=== PATIENT | female | born 1945 | race Caucasian/White ===

== ENCOUNTER → 2018-06-07 | Day surgery (SDC) | payer MEDICARE ==
[2018-05-31 15:51] LABS: BASOPHILS % 0.6 % (0.0-1.0); EOSINOPHILS # (AUTO) 0.1 (0.0-0.4); EOSINOPHILS % 1.3 % (0.0-6.0); HEMOGLOBIN 12.3 g/dL (12.0-16.0); LYMPHOCYTES # (AUTO) 1.8 (1.0-3.2); LYMPHOCYTES % 26.5 % (18.0-39.1); MEAN CORPUSCULAR HEMOGLOBIN 29.4 pg (28-32); MEAN CORPUSCULAR HGB CONC 33.2 g/dL (31-35); MEAN CORPUSCULAR VOLUME 88.3 fL (81-99); MONOCYTES # (AUTO) 0.6 (0.2-0.8); MONOCYTES % 9.1 % (4.4-11.3); NEUTROPHILS # (AUTO) 4.3 (2.1-6.9); NEUTROPHILS % 62.2 % (38.7-80.0); PLATELET COUNT 237 x10e3/uL (140-360); RED BLOOD COUNT 4.19 x10e6/uL (3.6-5.1); RED CELL DISTRIBUTION WIDTH 13.1 % (11.7-14.4)
--- NOTE | 2018-05-31 15:59 | Diagnostic Imaging Report ---
EXAMINATION: CHEST 2 VIEWS INDICATION: PREOP COMPARISON: None FINDINGS: TUBES and LINES: None. LUNGS: Lungs are well inflated. Lungs are clear. There is no evidence of pneumonia or pulmonary edema. PLEURA: No pleural effusion or pneumothorax. Mild biapical pleural scarring. HEART AND MEDIASTINUM: The cardiomediastinal silhouette is unremarkable. Mild calcification of the aortic arch. BONES AND SOFT TISSUES: No acute osseous lesion. Spondylosis of the thoracic spine. UPPER ABDOMEN: No free air under the diaphragm. IMPRESSION: No acute thoracic abnormality. Signed by: Dr. Mega Chapman M.D. on 05/31/2018 3:56 PM
[2018-05-31 16:05] LABS: ANION GAP 14.7 mmol/L (8-16); CALCIUM 9.6 mg/dL (8.4-10.2); CREATININE, SERUM 1.06 mg/dL (0.57-1.11); POTASSIUM 3.7 mmol/L (3.5-5.1)
[~2018-06-07] MED LIST: ACETAMINOPHEN/CODEINE 300MG - 30MG TAB ONE; ALLOPURINOL100 MG PO; ASPIR 8181 MG PO; Aspirin PO; BUPIVACAINE 0.25% 30ML SDV INJ ONE; CALCIUM600 MG PO; CEFAZOLIN SOD 1 GM/NS 50ML 50 ML IV ONE; CIPROFLOXACIN500 M1 PO; DETROL LA4 MG PO; FENTANYL CITRATE/PF 100MCG/2 ML INJ ONE; FISH OIL500 M1 PO; HYDROCHLOROTHIA25 MG PO; LABETALOL HCL 5 MG/ML 20ML VIAL ONE; LIDOCAINE HCL 2% LOCAL INJ 5 ML SDV VIAL INJ ONE; MACROBID 100 M100 MG PO; MELOXICAM7.5 MG PO; METFORMIN HCL500 MG PO; METOCLOPRAMIDE HCL 10 MG/2ML VIAL ONE; METOPROLOL SUCC25 MG PO; MONTELUKAST SOD10 MG PO; MULTIVITAMINS1 EAC8 PO; NEURONTIN300 MG PO; NORCO 7.5-3251 EACH PO; OMEPRAZOLE40 MG PO; ONDANSETRON HCL INJ 2MG/ML 2ML 2 MG/ML VIAL ONE; OSTEO BI-FLEX1 EAC1 PO; PROPOFOL IV EMULSION 10 MG/ML 20 ML VIAL ONE; SEVOFLURANE INHAL SOLN 250 ML PEN BTL ONE; SUCCINYLCHOLINE 200 MG/10 ML SYR ONE; SYNTHROID25 MCG PO; VASOTEC20 MG PO; ZETIA10 MG PO
--- OUTSIDE RECORDS SUMMARY | 2018-06-07 09:18 | XMS REPORT ---
Author Author [facility] Organization [facility] Address Unknown Phone Unavailable Care Team Providers Care First Line Production Supervisor Name Role Phone ALEXANDR AG Unavailable Unavailable Payers Payer Name Policy Type Policy Number Effective Date Expiration Date Problems This patient has no known problems. Allergies, Adverse Reactions, Alerts Allergy Name Allergy Type Status Severity Reaction(s) Onset Date Inactive Date Treating Clinician Comments Sulfa (Sulfonamide Antibiotics) DA Active U 2014-07-02 00:00:00 hydrocodone DA Active U 2014-07-02 00:00:00 acetaminophen DA Active U 2014-07-02 00:00:00 Medications This patient has no known medications. Results Test Description Test Time Test Comments Text Results Atomic Results Result Comments CHEST 2 VIEWS 2018-05-31 15:55:00 [place] [address] Patient Name: BETTIE PANG MR #: [id number] : 1945 Age/Sex: 73/F Req #: [id number] Adm Physician: Ordered by: ALEXANDR AG MD Report #: [id number] Location: OR Room/Bed: Procedure: [id number] DX/CHEST 2 VIEWS Exam Date: Exam Time: REPORT STATUS: Signed EXAMINATION: CHEST 2 VIEWS INDICATION: PREOP COMPARISON: None FINDINGS: TUBES and LINES: None. LUNGS: Lungs are well inflated. Lungs are clear. There is no evidence of pneumonia or pulmonary edema. PLEURA: No pleural effusion or pneumothorax. Mild biapical pleural scarring. HEART AND MEDIASTINUM: The cardiomediastinal silhouette is unremarkable. Mild calcification of the aortic arch. BONES AND SOFT TISSUES: No acute osseous lesion. Spondylosis of the thoracic spine. UPPER ABDOMEN: No free air under the diaphragm. IMPRESSION: No acute thoracic abnormality. Signed by: Dr. Mega Chapman M.D. on 05/31/2018 3:56 PM Dictated By: ATIF CHAPMAN MD, MD [id number] Transcribed By: TERESA on 05/31/18 [id number] COPY TO: ALEXANDR AG MD
--- OUTSIDE RECORDS SUMMARY | 2018-06-07 09:18 | XMS REPORT | Clinical Summary ---
Author Author [facility] Organization [facility] Address Unknown Phone Unavailable Care Team Providers Care Handbag Finisher Name Role Phone Jerzy Valdez MD PCP Allergies Comments Active Allergy Reactions Severity Noted Date Rash Sulfa (Sulfonamide 12/10/2016 Antibiotics) Medications End Date Status Medication Sig Dispensed Refills Start Date Active aspirin (ECOTRIN) 81 MG Take 81 mg by 0 enteric coated tablet mouth daily. Active metFORMIN (GLUCOPHAGE) Take 1,000 mg 0 1,000 mg tablet by mouth 2 (two) times a day with meals. Active levothyroxine (SYNTHROID, Take 25 mcg 0 LEVOXYL) 25 mcg tablet by mouth every morning. Active metoprolol succinate XL Take 25 mg by 0 (TOPROL-XL) 25 mg 24 hr mouth daily. tablet Active enalapril (VASOTEC) 20 MG Take 20 mg by 0 tablet mouth daily. Active hydroCHLOROthiazide Take 25 mg by 0 (HYDRODIURIL) 25 MG mouth daily. tablet Active allopurinol (ZYLOPRIM) Take 100 mg 0 100 MG tablet by mouth daily. Active omeprazole (PriLOSEC) 40 Take 40 mg by 0 MG capsule mouth daily. Active ezetimibe (ZETIA) 10 mg Take 10 mg by 0 tablet mouth daily. Active montelukast (SINGULAIR) Take 10 mg by 0 10 mg tablet mouth nightly. Active gabapentin (NEURONTIN) Take 300 mg 0 300 mg capsule by mouth 2 (two) times a day. 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/08/2017 Internal nasal lesion 12/10/2016 Encounters Care Team Description Date Type Specialty Jignesh Cruz MD Squamous cell skin cancer, nasal tip (Primary Dx); Internal nasal lesion 12/23/2017 Office Visit Otolaryngology Jignesh Cruz MD Internal nasal lesion (Primary Dx) 09/21/2017 Office Visit Otolaryngology Jignesh Cruz MD Internal nasal lesion (Primary Dx) 08/03/2017 Office Visit Otolaryngology Jignesh Cruz MD Squamous cell skin cancer, nasal tip (Primary Dx) 07/01/2017 Office Visit Otolaryngology after 06/06/2017 Family History Medical History Relation Name Comments Cancer Mother uterine Relation Name Status Comments Father Mother Social History Date Tobacco Use Types Packs/Day Years Used Quit: 03/08/2017 Former Smoker Cigarettes 1.5 50 Smokeless Tobacco: Never Used Alcohol Use Drinks/Week oz/Week Comments No Sex Assigned at Date Recorded Not on file Industry Job Start Date Occupation Not on file Not on file Not on file Travel End Travel History Travel Start No recent travel history available. Last Filed Vital Signs Time Taken Vital Sign Reading 12/23/2017 9:37 AM CDT Blood Pressure 105/69 12/23/2017 9:37 AM CDT Pulse 84 07/01/2017 9:08 AM CDT Temperature 36.6 C (97.9 F) - Respiratory Rate - - Oxygen Saturation - - Inhaled Oxygen - Concentration 12/23/2017 9:37 AM CDT Weight 96.2 kg (212 lb) 12/23/2017 9:37 AM CDT Height 160 cm (5' 3") 12/23/2017 9:37 AM CDT Body Mass Index 37.55 Plan of Treatment Care Team Description Date [place] [address] [facility] [address] [place] [address] [phone] 06/22/2018 Office Visit Otolaryngology Health Maintenance Due Date Last Done Comments BREAST CANCER SCREENING 1996 COLON CANCER SCREENING 1996 SHINGLES VACCINES (1 of 1996 2) PNEUMOCOCCAL 2011 POLYSACCHARIDE VACCINE AGE 65 AND OVER PNEUMOCOCCAL-13 2011 INFLUENZA VACCINE 11/17/2017 Results Not on fileafter 06/06/2017 Insurance Payer Benefit Subscriber ID Type Phone Address Plan / Group [employer] TEX[employer] xxxxxxxxx O [facility] Advance Directives Patient has advance care planning documents on file. For more information, madi landa contact: Hi Belcher [address] [place] [address]
[2018-06-07 12:15] VITALS: BP 160/88
--- NOTE | 2018-06-07 13:46 | Operative Report ---
DATE OF PROCEDURE: 06/07/2018 DOOR GLASS INSTALLER: Eddie Hensley PA-C PREOPERATIVE DIAGNOSES: Bilateral third trigger fingers and right trigger thumb. POSTOPERATIVE DIAGNOSES: Bilateral third trigger fingers and right trigger thumb. PROCEDURE: Release of bilateral third trigger fingers and right trigger thumb. INDICATIONS: The patient is a 73-year-old lady, who has clinic exam and symptoms consistent with bilateral third trigger fingers and right trigger thumb. She would like to have these surgically released. She had previous injections, which only provided temporary relief. The risks and benefits were explained. She states she understands and wishes to proceed. DESCRIPTION OF PROCEDURE: The patient was brought to the operating room and placed under general anesthetic. Both upper extremities were prepped and draped in a sterile manner. A preoperative time-out was performed. Initial attention was directed towards the right hand. The extremity was exsanguinated and the proximal tourniquet was inflated to 250 mmHg. A transverse incision was made in line with the right third finger over the distal palmar crease. The A1 ronald was carefully dissected out and released with a 15-blade surgical knife. The tendon was retracted from the wound and noted to have no further stenosing tenosynovitis. The wound was closed with 2 interrupted nylon stitches. The same procedure was then performed on the right thumb and the left third finger. There was some notable fraying of the right third flexor tendon. All of the incisions were closed with interrupted nylon stitches. 0.5% Marcaine without epinephrine was injected around each incision. Sterile bandages were applied. She was extubated and transported to the recovery room in stable condition. There was no blood loss, and all needle and sponge counts were correct. Chance Cardona MD DR/RASHAUN /[id number]
== END | disposition home or self-care (01) ==
LOC: OR 09:15
PROVIDERS: ATTEND Specialist
DX: M65.332 Trigger finger, left middle finger (principal); M65.331 Trigger finger, right middle finger; M65.311 Trigger thumb, right thumb; G57.93 Unspecified mononeuropathy of bilateral lower limbs; I10 Essential (primary) hypertension; E11.9 Type 2 diabetes mellitus without complications; I45.10 Unspecified right bundle-branch block; M19.90 Unspecified osteoarthritis, unspecified site; J44.9 Chronic obstructive pulmonary disease, unspecified; E78.5 Hyperlipidemia, unspecified; E03.9 Hypothyroidism, unspecified; K21.9 Gastro-esophageal reflux disease without esophagitis; Z88.6 Allergy status to analgesic agent; Z88.2 Allergy status to sulfonamides; Z01.810 Encounter for preprocedural cardiovascular examination; Z01.812 Encounter for preprocedural laboratory examination; Z01.818 Encounter for other preprocedural examination; R42 Dizziness and giddiness; Z79.84 Long term (current) use of oral hypoglycemic drugs; Z79.82 Long term (current) use of aspirin; Z68.37 Body mass index [BMI] 37.0-37.9, adult; Z85.828 Personal history of other malignant neoplasm of skin; Z85.51 Personal history of malignant neoplasm of bladder; Z87.891 Personal history of nicotine dependence
CPT/HCPCS: 26055 ×3; 36415 ×2; 71046; 80048; 82948; 85025; 93005; J0690; J2001; J2405; J2704; J2765; J3490

== ENCOUNTER → 2019-03-14 | Day surgery (SDC) | payer MEDICARE ==
[2019-03-09 09:37] LABS: BASOPHILS % 0.3 % (0.0-1.0); EOSINOPHILS # (AUTO) 0.1 (0.0-0.4); EOSINOPHILS % 0.7 % (0.0-6.0); HEMATOCRIT 40.5 % (34.2-44.1); LYMPHOCYTES # (AUTO) 2.1 (1.0-3.2); LYMPHOCYTES % 29.5 % (18.0-39.1); MEAN CORPUSCULAR HEMOGLOBIN 29.7 pg (28-32); MEAN CORPUSCULAR HGB CONC 32.1 g/dL (31-35); MEAN CORPUSCULAR VOLUME 92.5 fL (81-99); MONOCYTES # (AUTO) 0.7 (0.2-0.8); NEUTROPHILS # (AUTO) 4.1 (2.1-6.9); NEUTROPHILS % 59.2 % (38.7-80.0); PLATELET COUNT 240 x10e3/uL (140-360); RED BLOOD COUNT 4.38 x10e6/uL (3.6-5.1); RED CELL DISTRIBUTION WIDTH 13.8 % (11.7-14.4)
[2019-03-09 09:56] LABS: ANION GAP 11.9 mmol/L (8-16); CALCIUM 9.7 mg/dL (8.4-10.2); CREATININE, SERUM 0.99 mg/dL (0.57-1.11); POTASSIUM 3.9 mmol/L (3.5-5.1)
--- NOTE | 2019-03-09 10:05 | Diagnostic Imaging Report ---
EXAMINATION: CHEST 2 VIEWS INDICATION: Pre-operative COMPARISON: None FINDINGS: LINES/TUBES:None LUNGS:The lungs are well-inflated. Mild biapical pleural parenchymal thickening/scarring. No focal consolidation or pulmonary edema. PLEURA:No pleural effusion or pneumothorax. MEDIASTINUM:The cardiomediastinal silhouette appears normal in size and shape. Atherosclerotic calcifications of the thoracic aorta. BONES/SOFT TISSUES:No acute osseous injury. ABDOMEN:No free air under the diaphragm. IMPRESSION: No focal pneumonia or pulmonary edema. Signed by: Bijan Mueller MD on 03/09/2019 10:02 AM
[~2019-03-14] MED LIST changes: +ACETAMINOPHEN 1000 MG/100 ML 100 ML IV ONE; -ACETAMINOPHEN/CODEINE 300MG - 30MG TAB ONE; -BUPIVACAINE 0.25% 30ML SDV INJ ONE; +BUPIVACAINE HCL 0.5% INJ 30 ML VIAL INJ ONE; +BUSPIRONE HCL5 MG PO; -CEFAZOLIN SOD 1 GM/NS 50ML 50 ML IV ONE; +DEXAMETHASONE SOD PHOS INJ 4 MG/ML VIAL ONE; -LABETALOL HCL 5 MG/ML 20ML VIAL ONE; -METOCLOPRAMIDE HCL 10 MG/2ML VIAL ONE; +MUPIROCIN 2% OINT 22 GM TUBE ONE; -SUCCINYLCHOLINE 200 MG/10 ML SYR ONE
--- NOTE | 2019-03-14 07:10 | NUR ---
SPIRITUAL CARE - Pre-Surgery Assessment: Pt in bed. Pt's at bedside. Pt reported supportive attention from family and friends. Intervention: I provided pastoral presence, hospitality, sympathetic listening, and prayer. I acquainted pt with availability of filling machine set up mechanic while hospitalized. Outcome: Pt expressed appreciation for visit. No need for follow up indicated at this time. HEBER Benoitlain Spiritual Care Department O: [phone] Pager: [phone] ([phone] + number calling from)
[2019-03-14 10:20] VITALS: BP 109/58
--- NOTE | 2019-03-14 18:36 | Operative Report ---
DATE OF PROCEDURE: 03/14/2019 SURGEON: Arpit Ch MD PREOPERATIVE DIAGNOSIS: Rule out injury, left thumb radial digital nerve. POSTOPERATIVE DIAGNOSES: Negative radial digital nerve injury, left carpal tunnel syndrome. PROCEDURES: 1. Exploration and neurolysis of left thumb radial digital nerve. 2. Left carpal tunnel release with flexor tenosynovectomy of wrist. ANESTHESIA: General. HISTORY: The patient is a 73-year-old female, who came to the office months back, complaining of numbness along the radial half of the distal phalanx of the left thumb. She states that she had recently undergone a trigger finger surgery, but not on the thumb. Postoperatively, she states that she noticed a wound on the radial aspect of the left thumb MP joint. She states that since the time of the surgery, she has had profound numbness along the radial aspect of the thumb. She was lost to followup after nerve conduction study test was performed, which was negative for any findings. She attributed this lack of followup to her being ill and unable to follow up. She recently followed up in the office and states that the numbness has not changed since her initial visit. She wishes to have exploration of the radial digital nerve. I informed the patient that if the exploration is negative that in fact the numbness and tingling may be coming from carpal tunnel syndrome. Risks, benefits, and alternatives of treatment were discussed with the patient and she is prepared to undergo the procedure as outlined. PROCEDURE IN DETAIL: The patient was marked preoperatively in the holding area. She was brought to the operating theater. After the induction of adequate general anesthesia, she was prepped and draped in a supine position and a time-out was performed. A volar Mo zig-zag incision was marked out over the left thumb extending from the MP joint to the IP joint. A 2 cm incision in the left thenar space was marked out as well. The left upper extremity was exsanguinated and the tourniquet was inflated to a pressure of 250 mmHg. The incision was made through the skin and subcutaneous tissues. Small venous tributaries were controlled with bipolar cautery. The flap over the volar aspect of the left thumb was raised in the deep subcutaneous plane. The radial digital nerve was identified as well as the radial digital artery. The nerve was explored from the proximal to the MP joint all the way to the IP joint and there was no indication of any damage. An incision was made into thenar space through the skin and subcutaneous tissue. Venous tributaries were controlled with the bipolar cautery. The incision was deepened to the palmar fascia until the transverse carpal ligament was identified. The ligament was sharply sectioned, taking care to protect and preserve the median nerve underlying it. After the complete width of the ligament was transected, the distal volar forearm fascia was divided under direct view. Proliferative flexor tenosynovium was noticed to encompass the median nerve and this was radically excised. After performing this maneuver, the nerve was noted to be adequately decompressed. The wound was copiously irrigated with bacteriostatic saline and both incisions were closed with 5-0 nylon in an interrupted horizontal mattress fashion. A Marcaine field block was performed at the operative site. Tourniquet was deflated. All the fingers pinked up nicely and a sterile bulking conforming bandage was applied. The patient tolerated the procedures well and was brought to recovery room in satisfactory condition and discharged with a postoperative instruction sheet as well as a followup appointment. MD ANDREW Banegas/RASHAUN /[id number]
== END | disposition home or self-care (01) ==
LOC: OR 06:35
PROVIDERS: ATTEND Plastic Surgery
DX: G56.02 Carpal tunnel syndrome, left upper limb (principal); S64.32XA Injury of digital nerve of left thumb, initial encounter; J44.9 Chronic obstructive pulmonary disease, unspecified; I10 Essential (primary) hypertension; M10.9 Gout, unspecified; M19.90 Unspecified osteoarthritis, unspecified site; E11.9 Type 2 diabetes mellitus without complications; F41.9 Anxiety disorder, unspecified; F17.210 Nicotine dependence, cigarettes, uncomplicated; Z88.2 Allergy status to sulfonamides; Z01.810 Encounter for preprocedural cardiovascular examination; Z01.812 Encounter for preprocedural laboratory examination; Z01.818 Encounter for other preprocedural examination; Z79.82 Long term (current) use of aspirin; Z79.84 Long term (current) use of oral hypoglycemic drugs
CPT/HCPCS: 25115; 36415 ×2; 64999; 71046; 80048; 82948; 85025; 93005; J0131; J1100; J2001; J2405; J2704; J3010

== ENCOUNTER → 2021-04-29 | Day surgery (SDC) | payer MEDICARE ==
[2021-04-25 09:39] LABS: BASOPHILS % 0.5 % (0.0-1.0); EOSINOPHILS # (AUTO) 0.1 (0.0-0.4); EOSINOPHILS % 1.4 % (0.0-6.0); HEMATOCRIT 42.7 % (34.2-44.1); HEMOGLOBIN 14.2 g/dL (12.0-16.0); LYMPHOCYTES # (AUTO) 1.3 (1.0-3.2); LYMPHOCYTES % 20.1 % (18.0-39.1); MEAN CORPUSCULAR HEMOGLOBIN 30.9 pg (28-32); MEAN CORPUSCULAR HGB CONC 33.3 g/dL (31-35); MONOCYTES # (AUTO) 0.6 (0.2-0.8); MONOCYTES % 8.8 % (4.4-11.3); NEUTROPHILS # (AUTO) 4.6 (2.1-6.9); NEUTROPHILS % 68.7 % (38.7-80.0); PLATELET COUNT 245 x10e3/uL (140-360); RED BLOOD COUNT 4.59 x10e6/uL (3.6-5.1); RED CELL DISTRIBUTION WIDTH 13.7 % (11.7-14.4)
[2021-04-25 10:01] LABS: ANION GAP 10.8 mmol/L (8-16); CALCIUM 9.3 mg/dL (8.4-10.2); CREATININE, SERUM 0.94 mg/dL (0.57-1.11); POTASSIUM 3.8 mmol/L (3.5-5.1)
[~2021-04-29] MED LIST changes: -ACETAMINOPHEN 1000 MG/100 ML 100 ML IV ONE; +ACETAMINOPHEN-1 EAC3 PO; +DEXAMETHASONE SOD PHOS INJ 4 MG/ML SDV ONE; -DEXAMETHASONE SOD PHOS INJ 4 MG/ML VIAL ONE; +KETOROLAC TROMETHAMINE 30 MG/ML VIAL ONE; +POVIDONE IODINE 0.05% 0.05 % ML PO ONE; +SODIUM CHLORIDE 0.9% 50ML 50 ML ONE
[2021-04-29 08:45] VITALS: BP 146/76
== END | disposition home or self-care (01) ==
LOC: OR 05:56
PROVIDERS: ATTEND Plastic Surgery
DX: M65.341 Trigger finger, right ring finger (principal); M65.342 Trigger finger, left ring finger; I10 Essential (primary) hypertension; E11.9 Type 2 diabetes mellitus without complications; E03.9 Hypothyroidism, unspecified; J44.9 Chronic obstructive pulmonary disease, unspecified; K21.9 Gastro-esophageal reflux disease without esophagitis; D64.9 Anemia, unspecified; F41.9 Anxiety disorder, unspecified; F17.200 Nicotine dependence, unspecified, uncomplicated; Z88.2 Allergy status to sulfonamides; Z01.810 Encounter for preprocedural cardiovascular examination; Z01.812 Encounter for preprocedural laboratory examination; Z01.818 Encounter for other preprocedural examination; Z20.822 Contact with and (suspected) exposure to COVID-19; Z79.82 Long term (current) use of aspirin; Z79.84 Long term (current) use of oral hypoglycemic drugs; Z79.899 Other long term (current) drug therapy; Z85.51 Personal history of malignant neoplasm of bladder
CPT/HCPCS: 26055 ×2; 36415 ×2; 71046; 80048; 82948; 85025; 93005; J0690; J1100; J1885; J2001; J2405; J2704; J3010; U0002